=== PATIENT | male | born 1985 | race Caucasian/White ===

== ENCOUNTER 2019-12-14 18:04 | Emergency (ER) | payer SELFPAY ==
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
[2019-12-14 18:08] VITALS: BP 144/96; PULSE 93; RESP 14; TEMP 36.4; O2SAT 98; BMI 25.8
[2019-12-14] MEDS: tetanus-dipt-pertussis 0.5 mL SDV IM (19:46)
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
[2019-12-14 20:21] VITALS: BP 138/79; PULSE 81; RESP 14; TEMP 36.6; O2SAT 99
== END 2019-12-14 20:22 | disposition home or self-care (01) ==
PROVIDERS: Emergency Provider Emergency Medicine
DX: S02.841A Fracture of lateral orbital wall, right side, initial encounter for closed fracture (principal); F17.210 Nicotine dependence, cigarettes, uncomplicated; S01.82XA Laceration with foreign body of other part of head, initial encounter; Z23 Encounter for immunization; V49.40XA Driver injured in collision with unspecified motor vehicles in traffic accident, initial encounter
CPT/HCPCS: 12013; 70450; 70486; 90471; 90715; 99282; 99283; J2001

== ENCOUNTER → 2021-12-05 16:24 | Outpatient (BNVA) | payer OTHER, SELFPAY | PROVIDERS: PCP Nurse Practitioner Family; Visit Provider Nurse Practitioner Family | DX: R07.9 Chest pain, unspecified (principal); Z79.899 Other long term (current) drug therapy; E55.9 Vitamin D deficiency, unspecified; F41.9 Anxiety disorder, unspecified; R07.89 Other chest pain; Z90.49 Acquired absence of other specified parts of digestive tract | CPT/HCPCS: 80053; 80061; 81003; 82306; 83036; 83721; 84443; 85025 ==

== ENCOUNTER 2021-12-12 10:07 | Outpatient (CLI) | payer OTHER, SELFPAY ==
--- NOTE | 2021-12-12 10:36 | XR_ITS ---
WS: [id number] XR thoracic spine 3V* [id number] REASON FOR EXAM: M54.6 - Pain in thoracic spine FINDINGS: Mild scoliosis of the thoracic spine convex left, nonweightbearing. No compression deformity or other focal abnormality of the thoracic vertebrae. Intervertebral disc spaces are well preserved. XR/XR thoracic spine 3V* [id number] IMPRESSION: No acute abnormality. Possible thoracic scoliosis.
--- NOTE | 2021-12-12 10:36 | XR_ITS ---
WS: [id number] XR chest 2V* [id number] REASON FOR EXAM: R06.02 - Shortness of breath FINDINGS: The heart and mediastinum are within normal limits. Calcified granulomatous changes in both hemithoraces. No acute pulmonary parenchymal or pleural abnormality. Bony thorax intact without significant abnormality. XR/XR chest 2V* [id number] IMPRESSION: No acute chest abnormality.
== END 2021-12-12 10:08 | disposition home or self-care (01) ==
LOC: RAD 10:30
PROVIDERS: PCP Nurse Practitioner Family; Visit Provider Nurse Practitioner Family
DX: R06.02 Shortness of breath (principal); M54.6 Pain in thoracic spine
CPT/HCPCS: 71046; 72072